=== PATIENT | male | born 1975 | race Caucasian/White ===

== ENCOUNTER 2020-12-24 05:22 | Day surgery (SDC) | payer MEDICAID ==
[2020-12-20 10:55] LABS: BASOPHILS % (AUTO) 0.3 % (0-1); EOSINOPHILS # (AUTO) 0.2 X10'3 (0-0.9); EOSINOPHILS % (AUTO) 3.1 % (0-6); LYMPHOCYTES % (AUTO) 24.5 % (21-51); MEAN CORPUSCULAR HEMOGLOBIN 32.4 PG (27.0-31.0); MEAN CORPUSCULAR HGB CONC 34.9 g/dL (33.0-36.5); MEAN CORPUSCULAR VOLUME 92.7 FL (78-98); MEAN PLATELET VOLUME 9.5 FL (7.4-10.4); MONOCYTES # (AUTO) 0.5 X10'3 (0-0.9); MONOCYTES % (AUTO) 6.6 % (2-12); NEUTROPHILS # (AUTO) 5.2 X10'3 (1.8-7.7); NEUTROPHILS % (AUTO) 65.5 % (42-75); PRE OP HEMATOCRIT 42.7 % (42.0-52.0); PRE OP HEMOGLOBIN 14.9 g/dL (14.0-17.9); PRE OP PLATELET COUNT 184 X10'3 (140-440); RED BLOOD COUNT 4.61 X10'6 (4.70-6.10); RED CELL DISTRIBUTION WIDTH 12.4 % (11.5-14.5)
[2020-12-20 11:08] LABS: PRE OP PROTIME 10.5 SECONDS (9.0-12.0)
[2020-12-20 11:16] LABS: ALBUMIN/GLOBULIN RATIO 1.1 (1.1-1.5); ALKALINE PHOSPHATASE 97 IU/L (46-116); BLOOD UREA NITROGEN 12 MG/DL (7-18); BUN/CREATININE RATIO 12.4 (5.4-32.0); CHLORIDE 104 MMOL/L (99-107); CREATININE 0.97 MG/DL (0.60-1.10); PRE OP ALT 17 U/L (30-65); PRE OP ANION GAP 9 (8-16); PRE OP AST 25 U/L (10-37); PRE OP BILIRUB, TOTAL 0.7 MG/DL (0.0-1.0); PRE OP GLUCOSE 84 MG/DL (70-104); PRE OP POTASSIUM 3.9 MMOL/L (3.4-5.1); PRE OP SODIUM 142 MMOL/L (135-145); TOTAL CARBON DIOXIDE 28.7 MMOL/L (24-32); TOTAL PROTEIN 7.8 G/DL (6.4-8.2); eGFR 83 ML/MIN
[2020-12-24] VITALS (10 sets, daily range): BP systolic 96–131; BP diastolic 49–78
[~2020-12-24] VITALS: Ht 177.8 cm; Wt 86.0 kg
[~2020-12-24 05:22] MED LIST: BUPR1PAT TOP; OXYC-150 PO; [UNRECOGNIZED DRUG - CODE] RC; ringers solution, lacted 1,000 ML IV SCH
[2020-12-24] MEDS ORDERED: albuterol 2.5 MG/3 ML nebule NEB ONE (05:30)
[2020-12-24] MEDS ORDERED: ceFAZolin 2gm in dextrose, iso 50 ML IV ONE (05:30)
[2020-12-24] MEDS ORDERED: famotidine 20mg tablet PO ONE (05:30)
[2020-12-24] MEDS ORDERED: bacitracin 15gm ointment TP ONE (06:48)
[2020-12-24] MEDS ORDERED: BUPIVAcaine 0.5% inj/PF 30 ML ONE (06:48)
[2020-12-24] MEDS ORDERED: fentaNYL/PF 50MCG/1 ML 2ML syringe IV PRN ×2 (07:05)
[2020-12-24] MEDS ORDERED: morphine 4 MG/ML inj SYRINge IV PRN (07:05)
[2020-12-24] MEDS ORDERED: labetalol 20mg/4ml (5mg/ml) syringe IV PRN (07:05)
[2020-12-24] MEDS ORDERED: ondansetron/PF 4mg/2ml inj IV PRN (07:05)
[2020-12-24] MEDS ORDERED: hydrALAZINE 20mg/ml inj. IV PRN (07:05)
[2020-12-24] MEDS ORDERED: ringers solution, lacted 1,000 ML IV SCH (07:05)
[2020-12-24] MEDS ORDERED: morphine 2 MG/ML inj. syringe IV PRN (07:05)
[2020-12-24] MEDS ORDERED: fentaNYL /PF 50mcg/ml 5ml ampule ONE (07:14)
[2020-12-24] MEDS ORDERED: dexamethasone sod phosphate 4mg/ml inj. ONE (07:14)
[2020-12-24] MEDS ORDERED: MIDAZolam 1 MG/ML 5ML VIAL ONE (07:14)
[2020-12-24] MEDS ORDERED: LIDOcaine 2% (20mg/ml) 5ml vial ONE (07:14)
[2020-12-24] MEDS ORDERED: ondansetron/PF 4mg/2ml inj ONE (07:15)
[2020-12-24] MEDS ORDERED: propofol inj 20 ML IV ONE (07:15)
[2020-12-24] MEDS ORDERED: BUPIVAcaine 0.5% inj/PF 30 ml vial IJ ONE (07:54)
[2020-12-24] MEDS ORDERED: sevoflurane 250ml liquid IH ONE (08:05)
[2020-12-24] MEDS ORDERED: ketorolac trometh. 30mg/ml inj. ONE (08:58)
[2020-12-24] MEDS ORDERED: naloxone 0.4 mg/ml inj ONE (09:06)
--- NOTE | 2020-12-24 09:16 | NUR ---
Received from OR via [facility] IN STABLE CONDITION , accompanied by Anesthesiologist and WATER PUMP ASSEMBLER report given by Artie. Addendum: 12/24/20 at 0950 by Jessie Simental RN Amended: Links added.
--- NOTE | 2020-12-24 10:46 | NUR ---
PATIENT DISCHARGED FROM PACU IN STABLE CONDITION AFTER WRITTEN AND VERBAL DISCHARGE INSTRUCTIONS GIVEN. PATIENT GAVE VEBAL UNDERDTANDING OF INSTRUCTIONS GIVEN. PATIENT LEFT FACILITY VIA WHEELCHAIR WITH RN. Addendum: 12/24/20 at 1100 by Jessie Simental RN Amended: Links added.
== END 2020-12-24 10:46 | disposition home or self-care (01) ==
LOC: PAS 05:22
PROVIDERS: ATTEND Urology
DX: N43.42 Spermatocele of epididymis, multiple (principal); Z30.2 Encounter for sterilization; N50.3 Cyst of epididymis; Z30.09 Encounter for other general counseling and advice on contraception; F17.200 Nicotine dependence, unspecified, uncomplicated; N50.82 Scrotal pain; B19.20 Unspecified viral hepatitis C without hepatic coma; I86.1 Scrotal varices; Z01.810 Encounter for preprocedural cardiovascular examination
CPT/HCPCS: 36415; 54512; 54830; 55250; 80053; 82948; 85025; 85610; 85730; 93005; 94640; J1100; J1885; J2001; J2250; J2310; J2405; J2704; J3010; U0003; U0005; A4215; A4618; A6446; A7000; J7120